=== PATIENT | male | born 1995 | race Two or more races ===

== ENCOUNTER → 2024-05-26 | Outpatient (CLI) | payer BC | END | disposition home or self-care (01) | LOC: MRI 13:21 | PROVIDERS: ATTEND Internal Medicine | DX: M51.379 Other intervertebral disc degeneration, lumbosacral region without mention of lumbar back pain or lower extremity pain (principal); M47.817 Spondylosis without myelopathy or radiculopathy, lumbosacral region; M54.50 Low back pain, unspecified | CPT/HCPCS: 72148 ==